=== PATIENT | female | born 1955 | race Caucasian/White ===

== ENCOUNTER → 2017-10-26 | Outpatient (CLI) | payer OTHER | END | disposition home or self-care (01) | LOC: PCVCIMAG 10:30 | DX: I65.23 Occlusion and stenosis of bilateral carotid arteries (principal); I25.10 Atherosclerotic heart disease of native coronary artery without angina pectoris; I10 Essential (primary) hypertension; E11.9 Type 2 diabetes mellitus without complications; Z87.891 Personal history of nicotine dependence | CPT/HCPCS: 93880 ==

== ENCOUNTER → 2018-11-01 | Outpatient (CLI) | payer OTHER ==
--- NOTE | 2018-11-01 10:00 | PCVCIMAG ---
APPROVED REPORT Indications Carotid artery disease Risk Factors Hypertension: Diabetes Doppler Spectral Velocity Analysis PSV / EDVPSV / EDV ECA (R) 61 / 8 cm/sECA (L) 55 / 12 cm/s dICA (R) 57 / 23 cm/sdICA (L) 54 / 19 cm/s Melinda (R) 90 / 33 cm/smICA (L) 57 / 23 cm/s pICA (R) 119 / 32 cm/spICA (L) 52 / 13 cm/s Bulb (R) 64 / 20 cm/sBulb (L) 76 / 18 cm/s dCCA (R) 52 / 13 cm/sdCCA (L) 71 / 18 cm/s mCCA (R) 68 / 26 cm/smCCA (L) 94 / 23 cm/s Vert (R) 53 / 12 cm/sVert (L) 32 / 13 cm/s ICA/CCA 2.29ICA/CCA 0.80 Basic Measurements Blood Pressure: Pulses: Right Left RightLeft Brachial(Sitting) 128/65ztIf621/66mmHgTemporal Real Time B-Mode Imaging Vert. (R)AntegradeVert. (L)Antegrade Findings The right carotid bulb has moderate calcified plaque. The right proximal internal carotid artery shows 40-50% stenosis. The right common carotid artery shows no significant stenosis. The right external carotid artery shows no significant stenosis. The left carotid bulb has mild plaque. The left proximal internal carotid artery shows <40% stenosis. The left common carotid artery shows no significant stenosis. The left external carotid artery shows no significant stenosis. Conclusion 1. Right internal carotid artery stenosis (40-50%). 2. Left internal carotid artery stenosis (<40%) 3. Antegrade vertebral flow Similar to study dated October 2017
== END | disposition home or self-care (01) ==
LOC: PCVCIMAG 08:19
PROVIDERS: ATTEND Internal Medicine
DX: I65.23 Occlusion and stenosis of bilateral carotid arteries (principal); Z88.1 Allergy status to other antibiotic agents; Z88.0 Allergy status to penicillin; Z88.2 Allergy status to sulfonamides
CPT/HCPCS: 93880